=== PATIENT | male | born 1970 | race Caucasian/White ===

== ENCOUNTER 2023-02-05 11:58 | Emergency (ER) | payer OTHER ==
[~2023-02-05] VITALS: Ht 172.7 cm; Wt 78.6 kg
[~2023-02-05 11:58] MED LIST: CONCERTA18 MG PO; LAMICTAL XR300 MG PO; ULTRAM 50MG TAB50 MG PO; WELLBUTRIN SR200 MG PO
[2023-02-05] MEDS ORDERED: DEPAKOTE ER 50500 MG (12:06)
[2023-02-05] MEDS ORDERED: INDERAL 20MG20 MG (12:07)
[2023-02-05] MEDS ORDERED: PRILOSEC 20MG20 MG (12:07)
[2023-02-05] MEDS ORDERED: PERCOCET 325 MG1 TA3 PO (15:06)
[2023-02-05] MEDS ORDERED: VALIUM 2MG T2 MG/TAB PO (15:06)
[2023-02-05 15:24] VITALS: BP 116/79; PULSE 95
== END 2023-02-05 15:26 | disposition home or self-care (01) ==
LOC: COL.ER 11:58
DX: M54.50 Low back pain, unspecified (principal)
CPT/HCPCS: J1100; J1885; J2270; J3360